=== PATIENT | male | born 2000 | race Caucasian/White ===

== ENCOUNTER 2024-02-17 13:27 | Emergency (ER) | payer MEDICAID ==
[~2024-02-17] VITALS: Ht 154.9 cm; Wt 69.0 kg
[2024-02-17 13:47] VITALS: BP 124/73; PULSE 75; RESP 16; TEMP 98.2; O2SAT 100
[2024-02-17] MEDS: MAGNESIUM/ALUMINUM HYDROXIDE/SIMETHICONE 30ML UDC PO STA (15:39)
== END 2024-02-17 16:42 | disposition home or self-care (01) ==
LOC: ER 13:27
DX: R09.A0 Foreign body sensation, unspecified (principal); E78.00 Pure hypercholesterolemia, unspecified
CPT/HCPCS: 70360; 99283

== ENCOUNTER 2024-02-19 10:30 | Emergency (ER) | payer MEDICAID ==
[~2024-02-19] VITALS: Ht 157.5 cm; Wt 61.0 kg
[2024-02-19 10:34] VITALS: BP 113/70; PULSE 74; RESP 20; TEMP 98.5; O2SAT 99
[2024-02-19] MEDS ORDERED: CETI10CA2 MT (12:00)
== END 2024-02-19 13:06 | disposition home or self-care (01) ==
LOC: ER 10:30
DX: R09.81 Nasal congestion (principal); E78.00 Pure hypercholesterolemia, unspecified
CPT/HCPCS: 71045; 99283

== ENCOUNTER 2024-09-24 18:11 | Emergency (ER) | payer MEDICAID ==
[~2024-09-24] VITALS: Ht 165.1 cm; Wt 75.0 kg
[~2024-09-24 18:11] MED LIST: CETI10CA2 MT
[2024-09-24 18:24] VITALS: TEMP 37; O2SAT 100
[2024-09-24] MEDS ORDERED: HYDR-4001 MT (23:20)
[2024-09-24] MEDS ORDERED: IBUP-2028 MT (23:20)
[2024-09-24] MEDS ORDERED: AMOX1TAB16 MT (23:20)
[2024-09-24 23:58] VITALS: BP 127/65; PULSE 61; RESP 18; O2SAT 100
== END 2024-09-25 | disposition home or self-care (01) ==
LOC: ER 18:16
DX: K04.7 Periapical abscess without sinus (principal); K08.89 Other specified disorders of teeth and supporting structures; E78.00 Pure hypercholesterolemia, unspecified; Z79.899 Other long term (current) drug therapy
CPT/HCPCS: 99283